=== PATIENT | male | born 1995 | race Two or more races ===

== ENCOUNTER 2019-08-25 20:15 | Emergency (ER) | payer OTHER ==
[~2019-08-25] VITALS: Ht 167.6 cm; Wt 84.4 kg
[2019-08-25 20:21] VITALS: BP 124/78
--- NOTE | 2019-08-25 20:28 | NUR ---
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
[2019-08-25] MEDS ORDERED: LIDOCAINE-MPF 1%, 5ML ONE (20:39)
[2019-08-25] MEDS ORDERED: LIDOCAINE 1%, 10ML INFIL ONE (21:00)
[2019-08-25] MEDS ORDERED: PLEASE ENTER ALLERGIES MC SCH (21:00)
--- NOTE | 2019-08-25 21:14 | NUR ---
report to caryl wallace
== END 2019-08-25 21:47 | disposition home or self-care (01) ==
LOC: ED 21:41
DX: S61.216A Laceration without foreign body of right little finger without damage to nail, initial encounter (principal); W26.0XXA Contact with knife, initial encounter; Y93.89 Activity, other specified; Y92.009 Unspecified place in unspecified non-institutional (private) residence as the place of occurrence of the external cause; Y99.8 Other external cause status
CPT/HCPCS: 12041; 99284